=== PATIENT | female | born 1995 | race Caucasian/White ===

== ENCOUNTER 2018-05-24 04:06 | Inpatient (IN) | payer OTHER ==
[~2018-05-24] VITALS: Ht 167.6 cm; Wt 114.0 kg
[2018-05-24 04:13] VITALS: Ht 167.6 cm; Wt 114.0 kg
[2018-05-24 04:58] LABS: BASOPHIL % 0.2 % (0-2); PLATELET COUNT 368 x10^3mcL (130-400); RED CELL DISTRIBUTION WIDTH 13.5 % (11.5-14.5)
[2018-05-24 05:13] LABS: CARBON DIOXIDE 26.3 mmol/L (21-32); CHLORIDE SERUM 104 mmol/L (98-107); CREATININE SERUM 0.9 mg/dL (0.6-1.0); GFR1 > 60 mL/min; GLUCOSE SERUM 103 mg/dL (74-106); POTASSIUM SERUM 3.6 mmol/L (3.5-5.1); SODIUM SERUM 136 mmol/L (136-145)
[2018-05-24 05:15] LABS: ALKALINE PHOSPHATASE 191 U/L (46-116); ALT/SGPT 165 U/L (14-59); AST/SGOT 77 U/L (15-37); BILIRUBIN TOTAL 0.97 mg/dL (0.20-1.00); LIPASE 136 IU/L (73-393); TOTAL PROTEIN, SERUM 7.8 g/dL (6.4-8.2)
[2018-05-24 06:58] LABS: UA SPECIFIC GRAVITY <=1.005 (1.005-1.035); microscopic required? YES; urine erythrocyte 3+ (NEGATIVE)
[2018-05-24 07:53] LABS: T3 TOTAL 0.93 ng/mL
[2018-05-24 08:16] LABS: CHOLESTEROL/HDL RATIO 3.2; MAGNESIUM 2.2 mg/dL (1.8-2.4); PHOSPHOROUS 3.7 mg/dL (2.5-4.9)
[2018-05-24 08:24] LABS: FREE T4 1.15 ng/dL (0.76-1.46); FREE THYROXINE INDEX 3.2 ug/dL (1.4-4.5); T4(THYROXINE) 9.3 ug/dL (4.7-13.3)
[2018-05-24 15:29] VITALS: BP 130/80
[2018-05-24 17:55] VITALS: BP 112/60
[2018-05-24 20:35] VITALS: BP 126/71
[2018-05-25 04:25] VITALS: BP 110/62
[2018-05-25 07:02] LABS: BASOPHIL % 0.3 % (0-2); PLATELET COUNT 352 x10^3mcL (130-400); RED CELL DISTRIBUTION WIDTH 13.3 % (11.5-14.5)
[2018-05-25 08:09] LABS: CALCIUM 9.2 mg/dL (8.5-10.1); CARBON DIOXIDE 24.9 mmol/L (21-32); CHLORIDE SERUM 105 mmol/L (98-107); CREATININE SERUM 0.9 mg/dL (0.6-1.0); GFR1 > 60 mL/min; GLUCOSE SERUM 97 mg/dL (74-106); MAGNESIUM 2.1 mg/dL (1.8-2.4); PHOSPHOROUS 3.7 mg/dL (2.5-4.9); POTASSIUM SERUM 3.6 mmol/L (3.5-5.1); SODIUM SERUM 138 mmol/L (136-145)
[2018-05-25 09:12] VITALS: BP 122/78
[2018-05-25 20:40] VITALS: BP 132/82
[2018-05-26 07:22] LABS: BASOPHIL % 0.6 % (0-2); PLATELET COUNT 373 x10^3mcL (130-400); RED CELL DISTRIBUTION WIDTH 13.7 % (11.5-14.5)
[2018-05-26 07:34] LABS: ALKALINE PHOSPHATASE 149 U/L (46-116); ALT/SGPT 104 U/L (14-59); AST/SGOT 44 U/L (15-37); BILIRUBIN TOTAL 0.6 mg/dL (0.20-1.00); CALCIUM 8.3 mg/dL (8.5-10.1); CARBON DIOXIDE 27.9 mmol/L (21-32); CHLORIDE SERUM 104 mmol/L (98-107); CREATININE SERUM 0.8 mg/dL (0.6-1.0); GFR1 > 60 mL/min; GLUCOSE SERUM 98 mg/dL (74-106); POTASSIUM SERUM 3.6 mmol/L (3.5-5.1); SODIUM SERUM 139 mmol/L (136-145); TOTAL PROTEIN, SERUM 7.5 g/dL (6.4-8.2)
[2018-05-26 07:37] LABS: ALBUMIN 2.8 g/dL (3.4-5.0)
[2018-05-26 08:54] VITALS: BP 126/85
[2018-05-26 13:03] VITALS: BP 128/88
[2018-05-26 16:16] VITALS: BP 128/88
[2018-05-26 17:34] VITALS: BP 139/97
== END 2018-05-26 18:00 | disposition home or self-care (01) | DRG 418 ==
LOC: ED 04:06 → DU 06:25
PROVIDERS: Emergency Medicine; Internal Medicine; Internal Medicine Pulmonary Disease; Surgery
PROC: 0FT44ZZ Resection of Gallbladder, Percutaneous Endoscopic Approach (ICD-10-PCS; principal; 2018-05-24 12:00)
DX: K80.00 Calculus of gallbladder with acute cholecystitis without obstruction (principal); N39.0 Urinary tract infection, site not specified; F12.10 Cannabis abuse, uncomplicated; E02 Subclinical iodine-deficiency hypothyroidism; Z88.8 Allergy status to other drugs, medicaments and biological substances
CPT/HCPCS: 83880; 84439; 94150; J0330; J1170; J1885; J1956; J2001; J2270; J2405; J2543; J2704; J2710; J3010; J3490; J7030; J7120; Q0092